=== PATIENT | male | born 1980 | race Caucasian/White ===

== ENCOUNTER 2021-08-15 08:47 | Inpatient (IN) | payer OTHER ==
[2021-08-15 09:29] VITALS: BMI 22.3
[2021-08-15] MEDS ORDERED: BISMUTH SUBSALICYLATE 524 MG/30 ML PO PRN (10:04)
[2021-08-15] MEDS ORDERED: diazePAM 5 MG TABLET PO PRN (10:04)
[2021-08-15] MEDS ORDERED: ONDANSETRON *ODT* 4 MG TABLET SL PRN (10:04)
[2021-08-15] MEDS ORDERED: MENTHOL/PHENOL 1 EACH UD MM PRN (10:04)
[2021-08-15] MEDS ORDERED: NICOTINE 10 MG CARTRIDGE (INHALER) IH PRN (10:04)
[2021-08-15] MEDS ORDERED: IBUPROFEN 400 MG TABLET (FP) PO PRN (10:04)
[2021-08-15] MEDS ORDERED: MAGNESIUM HYDROX 2400MG/30ML ORAL SUSPENSION 30 ML CUP PO PRN (10:04)
[2021-08-15] MEDS ORDERED: ACETAMINOPHEN 325 MG TABLET (FP) PO PRN ×2 (10:04)
[2021-08-15] MEDS ORDERED: MAG HYDROX/AL HYDROX/SIMETH 30 ML UNIT-DOSE CUP PO PRN (10:04)
[2021-08-15] MEDS ORDERED: MAGNESIUM CITRATE 300 ML BOTTLE PO PRN (10:04)
[2021-08-15] MEDS ORDERED: valACYclovir HCL 500 MG TABLET (FP) PO ONE (10:30)
[2021-08-15] MEDS: diazePAM 5 MG TABLET PO SCH ×3 (11:17→22:08)
[2021-08-15] MEDS: TENOFOVIR DISOPROXIL FUMARATE 300 MG TABLET PO SCH (14:08)
[2021-08-15] MEDS: hydrOXYzine PAMOATE 25 MG CAPSULE (FP) PO SCH ×3 (14:10→22:07)
[2021-08-15] MEDS: MELATONIN 5 MG TABLETS PO SCH (22:07)
[2021-08-15] MEDS: THIAMINE HCL 100 MG TABLET (FP) PO SCH (22:07)
[2021-08-15] MEDS: RALTEGRAVIR POTASSIUM 400 MG TAB PO SCH (22:08)
[2021-08-16] MEDS: diazePAM 5 MG TABLET PO SCH ×4 (05:49→22:24)
[2021-08-16] MEDS: hydrOXYzine PAMOATE 25 MG CAPSULE (FP) PO SCH ×5 (05:50→22:25)
[2021-08-16] MEDS: TENOFOVIR DISOPROXIL FUMARATE 300 MG TABLET PO SCH (07:31)
[2021-08-16] MEDS: PRENATAL VITAMINS W/ FOLIC ACID TABLET (FP) PO SCH (10:14)
[2021-08-16] MEDS: RALTEGRAVIR POTASSIUM 400 MG TAB PO SCH ×2 (10:14→22:25)
[2021-08-16] MEDS ORDERED: cloNIDine HCL 0.1 MG TABLET PO PRN (10:23)
[2021-08-16 11:30] LABS: HEMATOCRIT 44.3 % (35.4-49); HEMOGLOBIN 15.1 GM/dL (11.7-16.9); MCH 31.6 pg (25.7-33.7); MEAN CELL VOLUME 92.8 fl (80-96); MEAN PLT VOLUME 8.5 fl (7.5-11.1); PLATELET COUNT 291 10^3/uL (134-434); RBC 4.78 M/mm3 (4.00-5.60); RDW 13.6 % (11.9-15.9); WHITE BLOOD COUNT 8.5 K/mm3 (4.0-10.0)
[2021-08-16 11:53] LABS: CALCIUM 9.2 mg/dL (8.5-10.1)
[2021-08-16 11:54] LABS: ALBUMIN 3.3 g/dl (3.4-5.0); BLOOD UREA NITROGEN 9.7 mg/dL (7-18)
[2021-08-16 11:57] LABS: BILIRUBIN,TOTAL 0.3 mg/dL (0.2-1); TOT PROT 6.7 g/dl (6.4-8.2)
[2021-08-16 13:58] LABS: HIV INTERPRETATION NEGATIVE (NEGATIVE)
[2021-08-16] MEDS: METHOCARBAMOL 500 MG TABLET PO PRN ×2 (15:35→22:24)
[2021-08-16] MEDS: THIAMINE HCL 100 MG TABLET (FP) PO SCH (22:25)
[2021-08-16] MEDS: MELATONIN 5 MG TABLETS PO SCH (22:25)
[2021-08-17] MEDS ORDERED: diazePAM 5 MG TABLET PO SCH (06:00)
[2021-08-17] MEDS: hydrOXYzine PAMOATE 25 MG CAPSULE (FP) PO SCH ×2 (06:09→11:16)
[2021-08-17 07:15] VITALS: BP 114/63; PULSE 60; TEMP 97.7
[2021-08-17] MEDS: TENOFOVIR DISOPROXIL FUMARATE 300 MG TABLET PO SCH (08:19)
[2021-08-17] MEDS: RALTEGRAVIR POTASSIUM 400 MG TAB PO SCH (11:16)
[2021-08-17] MEDS: PRENATAL VITAMINS W/ FOLIC ACID TABLET (FP) PO SCH (11:16)
[2021-08-18] MEDS ORDERED: diazePAM 5 MG TABLET PO SCH (06:00)
[2021-08-19] MEDS ORDERED: diazePAM 5 MG TABLET PO ONE (06:00)
== END 2021-08-17 09:39 | disposition left against medical advice (07) | DRG 770 ==
LOC: YASAS 08:47 → Y6N 10:16
PROVIDERS: ADMIT Allergy & Immunology; ATTEND Allergy & Immunology
PROC: HZ2ZZZZ Detoxification Services for Substance Abuse Treatment (ICD-10-PCS; principal; 2021-08-15)
DX: F10.230 Alcohol dependence with withdrawal, uncomplicated (principal); F13.20 Sedative, hypnotic or anxiolytic dependence, uncomplicated; F14.20 Cocaine dependence, uncomplicated; F12.20 Cannabis dependence, uncomplicated; F17.210 Nicotine dependence, cigarettes, uncomplicated; M54.5 Low back pain; G89.29 Other chronic pain; Z20.6 Contact with and (suspected) exposure to human immunodeficiency virus [HIV]; Z56.0 Unemployment, unspecified; Z59.0 Homelessness
CPT/HCPCS: 36415; 80053; 85027; 86780; 87389; 93005; 93010; C9803; U0003; U0005